=== PATIENT | female | born 1985 | race Hispanic/Latino ===

== ENCOUNTER 2022-09-15 21:54 | Emergency (ER) | payer SELFPAY ==
[~2022-09-15] VITALS: Ht 152.4 cm; Wt 128.8 kg
[2022-09-15] MEDS ORDERED: CEPHALEXIN500 MG PO (22:43)
[2022-09-15] MEDS ORDERED: ACETAMINOPHEN-1 EAC4 PO (22:43)
== END 2022-09-15 23:00 | disposition home or self-care (01) ==
LOC: ER 21:58
DX: S31.819A Unspecified open wound of right buttock, initial encounter (principal); E66.9 Obesity, unspecified
CPT/HCPCS: 99283

== ENCOUNTER 2023-10-28 18:54 | Emergency (ER) | payer OTHER ==
[~2023-10-28] VITALS: Ht 152.4 cm; Wt 122.5 kg
[~2023-10-28 18:54] MED LIST: ACETAMINOPHEN-1 EAC4 PO; CEPHALEXIN500 MG PO
[2023-10-28 19:42] LABS: BASOPHILS % 0.3 % (0.0-1.0); EOSINOPHILS # (AUTO) 0.1 (0.0-0.4); EOSINOPHILS % 1.1 % (0.0-6.0); HEMATOCRIT 41.9 % (34.2-44.1); HEMOGLOBIN 13.3 g/dL (12.0-16.0); LYMPHOCYTES # (AUTO) 2.6 (1.0-3.2); LYMPHOCYTES % 25.4 % (18.0-39.1); MEAN CORPUSCULAR HEMOGLOBIN 29.8 pg (28-32); MEAN CORPUSCULAR HGB CONC 31.7 g/dL (31-35); MEAN CORPUSCULAR VOLUME 93.7 fL (81-99); MONOCYTES # (AUTO) 0.6 (0.2-0.8); MONOCYTES % 5.6 % (4.4-11.3); NEUTROPHILS # (AUTO) 6.9 (2.1-6.9); NEUTROPHILS % 67.3 % (38.7-80.0); PLATELET COUNT 238 x10e3/uL (140-360); RED BLOOD COUNT 4.47 x10e6/uL (3.6-5.1); RED CELL DISTRIBUTION WIDTH 14.2 % (11.7-14.4); WHITE BLOOD COUNT 10.18 x10e3/uL (4.8-10.8)
[2023-10-28] MEDS ORDERED: SODIUM CHLORIDE 0.9% 1000ML 1,000 ML IV STA (19:55)
[2023-10-28 20:00] LABS: ALANINE AMINOTRANSFERASE 33 IU/L (0-55); ALBUMIN 3.5 g/dL (3.5-5.0); ALBUMIN/GLOBULIN RATIO 1.1 (0.8-2.0); ALKALINE PHOSPHATASE 68 IU/L (40-150); ANION GAP 12.6 mmol/L (8-16); BILIRUBIN,TOTAL 0.4 mg/dL (0.2-1.2); BLOOD UREA NITROGEN 7 mg/dL (7-26); BUN/CREATININE RATIO 9 (6-25); CALCIUM 8.9 mg/dL (8.4-10.2); CARBON DIOXIDE 26 mmol/L (22-29); CHLORIDE 107 mmol/L (98-107); CREATINE KINASE 66 IU/L (29-168); CREATININE, SERUM 0.74 mg/dL (0.57-1.11); EST GLOMERULAR FILTRATION RATE 105 ML/MIN (>=60); GLUCOSE 93 mg/dL (74-118); POTASSIUM 3.6 mmol/L (3.6-4.7); SODIUM 142 mmol/L (136-145); TOTAL PROTEIN 6.8 g/dL (6.5-8.1)
[2023-10-28 20:09] LABS: TROPONIN I < 0.001 ng/mL (0-0.300)
[2023-10-28] MEDS ORDERED: SODIUM CHLORIDE 0.9% 100 ML ONE (20:31)
[2023-10-28] MEDS ORDERED: IOPAMIDOL 370 MG/ML 100 ML INFUS..BTL INJ ONE (20:31)
[2023-10-28] MEDS ORDERED: KETOROLAC TROMETHAMINE 30 MG/ML VIAL IV STA (21:59)
[2023-10-28 22:09] VITALS: O2SAT 100
== END 2023-10-28 22:30 | disposition home or self-care (01) ==
LOC: ER 19:05
DX: R06.02 Shortness of breath (principal); R07.89 Other chest pain; R47.81 Slurred speech; R20.0 Anesthesia of skin; Z20.822 Contact with and (suspected) exposure to COVID-19
CPT/HCPCS: 36415; 70496; 70498; 71260; 80053; 82550; 83690; 83880; 84484; 84702; 85025; 93005; 99284; J1885; J7030; J7050; Q9967; U0002

== ENCOUNTER 2025-06-23 17:15 | Emergency (ER) | payer OTHER ==
[~2025-06-23] VITALS: Ht 152.4 cm; Wt 127.0 kg
[2025-06-23 18:03] VITALS: PULSE 87; RESP 16; TEMP 98.6
[2025-06-23] MEDS: ORPHENADRINE CITRATE 30 MG/ML VIAL IM ONE (21:40)
[2025-06-23] MEDS: KETOROLAC TROMETHAMINE 60 MG/2 ML VIAL IM ONE (21:41)
[2025-06-23] MEDS ORDERED: ORPHENADRINE C100 MG PO (22:00)
[2025-06-23] MEDS ORDERED: NAPROSYN500 MG PO (22:00)
[2025-06-23 22:19] VITALS: BP 124/69; PULSE 86; RESP 20; O2SAT 100
== END 2025-06-23 22:10 | disposition home or self-care (01) ==
LOC: ER 19:54
DX: M54.32 Sciatica, left side (principal); M79.89 Other specified soft tissue disorders
CPT/HCPCS: 93971; 99283; J1885; J2360